=== PATIENT | female | born 1985 | race Caucasian/White ===

== ENCOUNTER 2016-08-19 02:53 | Inpatient (IN) | payer BC ==
[2016-08-19] MEDS ORDERED: Penicillin G Potassium IV* 5 MILLION.UNITS VIAL ONE (03:24)
[2016-08-19 03:36] LABS: Hematocrit 32 % (35-47); Hemoglobin 10.5 g/dl (12.0-16.0); Mean Corpuscular HGB Conc 33 g/dl (31-36); Mean Corpuscular Hemoglobin 27 pg (27-31); Mean Corpuscular Volume 81 fL (80-97); Mean Platelet Volume 9 um3 (7.4-10.4); Red Blood Count 3.93 10^6/ul (4.0-5.4); Red Cell Distribution Width 15 % (10.5-15); White Blood Count 11.3 10^3/ul (3.5-10.8)
[2016-08-19] MEDS ORDERED: OBEPIDURAL* 250 ML ONE (03:44)
[2016-08-19] MEDS ORDERED: Famotidine TAB* 20 MG PO PRN (04:13)
[2016-08-19] MEDS ORDERED: Sodium Citrate/Citric Acid* 15 ML UDC PO PRN (04:13)
[2016-08-19] MEDS ORDERED: Phenylephrine IV* 40 MCG/ML 10 ML SYRINGE IV PUSH PRN (04:13)
[2016-08-19] MEDS ORDERED: EPHEDrine (Pressors)* 50 MG/ML VIAL IV PUSH PRN (04:13)
[2016-08-19] MEDS ORDERED: OBEPIDURAL* 250 ML EPIDURAL SCH (05:00)
[2016-08-19] MEDS ORDERED: Oxytocin in LR* 20 UNITS/1,000 ML BAG IVPB SCH ×2 (08:00→15:00)
[2016-08-19] MEDS ORDERED: Oxytocin in LR* 20 UNITS/1,000 ML BAG IVPB ONE (08:07)
[2016-08-19] MEDS ORDERED: Acetaminophen TAB* 325 MG PO PRN (14:17)
[2016-08-19] MEDS ORDERED: Glycerin ADULT SUPP PR PRN (14:17)
[2016-08-19] MEDS ORDERED: Dibucaine 1% 28.35 GM TUBE PR PRN (14:17)
[2016-08-19] MEDS ORDERED: Witch Hazel PAD* JAR TOPICAL PRN (14:17)
[2016-08-19] MEDS ORDERED: oxyCODONE/Acetamin 5/325 MG* TAB PO PRN (14:24)
[2016-08-19] MEDS: Ibuprofen TAB* 600 MG PO PRN (19:18)
[2016-08-19] MEDS: Docusate CAP* 100 MG PO SCH (23:23)
[2016-08-20] MEDS: Ibuprofen TAB* 600 MG PO PRN ×4 (02:16→20:31)
[2016-08-20 08:23] LABS: Hematocrit 29 % (35-47); Hemoglobin 9.7 g/dl (12.0-16.0); Mean Corpuscular HGB Conc 33 g/dl (31-36); Mean Corpuscular Hemoglobin 27 pg (27-31); Mean Corpuscular Volume 82 fL (80-97); Mean Platelet Volume 9 um3 (7.4-10.4); Red Blood Count 3.56 10^6/ul (4.0-5.4); Red Cell Distribution Width 15 % (10.5-15)
[2016-08-20] MEDS: Simethicone CHEW TAB* 80 MG PO SCH ×3 (09:00→20:47)
[2016-08-20] MEDS: Docusate CAP* 100 MG PO SCH ×3 (09:08→20:31)
[2016-08-20] MEDS: Ferrous Gluconate TAB* 324 MG TAB PO SCH ×2 (09:09→20:31)
[2016-08-21 08:08] VITALS: BP 106/75
[2016-08-21] MEDS: Ferrous Gluconate TAB* 324 MG TAB PO SCH (09:00)
[2016-08-21] MEDS: Simethicone CHEW TAB* 80 MG PO SCH (09:00)
[2016-08-21] MEDS: Docusate CAP* 100 MG PO SCH (09:02)
[2016-08-21] MEDS: Ibuprofen TAB* 600 MG PO PRN (09:03)
== END 2016-08-21 12:14 | disposition home or self-care (01) | DRG 560 ==
LOC: MCHOBOUT 02:53 → MCHOB 03:26
PROVIDERS: ADMIT Obstetrics & Gynecology; ATTEND Obstetrics & Gynecology
PROC: 4A1HX4Z Monitoring of Products of Conception, Cardiac Electrical Activity, External Approach (ICD-10-PCS; principal; 2016-08-19)
PROC: 0HQ9XZZ Repair Perineum Skin, External Approach (ICD-10-PCS; 2016-08-19)
PROC: 10E0XZZ Delivery of Products of Conception, External Approach (ICD-10-PCS; 2016-08-19)
PROC: 10907ZC Drainage of Amniotic Fluid, Therapeutic from Products of Conception, Via Natural or Artificial Opening (ICD-10-PCS; 2016-08-19)
DX: O99.824 Streptococcus B carrier state complicating childbirth (principal); O77.0 Labor and delivery complicated by meconium in amniotic fluid; Z3A.39 39 weeks gestation of pregnancy; Z37.0 Single live birth; O70.0 First degree perineal laceration during delivery; O90.81 Anemia of the puerperium
CPT/HCPCS: 36415; 85025; 86850; 86900; 86901; A9270-GY; J2540

== ENCOUNTER 2017-10-06 17:13 | Emergency (ER) | payer BC ==
[2017-10-06 17:48] VITALS: BP 112/75
--- NOTE | 2017-10-06 18:31 | RAD ---
INDICATION: Pain between the thumb and the index finger mid metacarpal region following crush injury. COMPARISON: No relevant prior exams available on the [facility] for comparison. TECHNIQUE: AP, lateral, and oblique views RIGHT hand. REPORT AND IMPRESSION: Mild soft tissue swelling at the metacarpal phalangeal joint region most prominent at the second and third digits. Negative for fracture or malalignment.
[2017-10-06] MEDS ORDERED: Ibuprofen TAB* 600 MG PO ONE (18:35)
--- NOTE | 2017-10-06 18:40 | ED ---
Upper Extremity Pain - HPI Summary HPI Summary: [id number] patient here with crush injury prior to arrival. She reports she was pulling a window down in her house when it slammed down and crushed her hand. She has a blood blister and 2 swollen knuckles of the second and third phalanges. She has a little bit of tingling involving these 2 fingers as well however she is able to move all digits without pain or restriction. Sore to touch over areas of swelling here - mild bruising. She has not tried anything prior to arrival but has been pacing in the room prior to my entrance. - History of Current Complaint Chief Complaint: UCUpperExtremity Stated Complaint: HAND INJURY Time Seen by Provider: 10/06/17 18:08 Hx Obtained From: Patient Hx Last Menstrual Period: 1 MONTH AGO - Allergies/Home Medications Allergies/Adverse Reactions: Allergies Allergy/AdvReac Type Severity Reaction Status Date / Time No Known Allergies Allergy Verified 07/30/15 14:08 Home Medications: Home Medications Multivitamin [Multivitamins] 1 each PO DAILY 10/06/17 [History Confirmed ] PMH/Surg Hx/FS Hx/Imm Hx Previously Healthy: Yes Endocrine/Hematology History: Denies: Hx Anticoagulant Therapy, Hx Blood Disorders Infectious Disease History: No Infectious Disease History: Denies: Traveled Outside the [place] in Last 30 Days - Social History Occupation: Employed Full-time - teacher Lives: With Family Alcohol Use: None Hx Substance Use: No Substance Use Type: Reports: None Hx Tobacco Use: No Smoking Status (MU): Never Smoked Tobacco Review of Systems Positive: no symptoms reported Positive: Arthralgia, Myalgia, Edema. Negative: Decreased ROM Positive: Bruising Positive: Paresthesia Psychological: Normal All Other Systems Reviewed And Are Negative: Yes Physical Exam Triage Information Reviewed: Yes Vital Signs On Initial Exam: Initial Vitals Temp Pulse Resp BP Pulse Ox 98.1 F 70 16 112/75 100 10/06/17 17:45 10/06/17 17:45 10/06/17 17:45 10/06/17 17:45 10/06/17 17:45 Vital Signs Reviewed: Yes Appearance: Positive: Well-Appearing, Well-Nourished, Pain Distress - mild Skin: Positive: Warm, Skin Color Reflects Adequate Perfusion, Dry - mild ecchymosis w/ focal edema of soft tissue between 2nd/3rd MCP's - no skin breakdown Head/Face: Positive: Normal Head/Face Inspection Eyes: Positive: EOMI ENT: Positive: Hearing grossly normal Respiratory/Lung Sounds: Positive: Breath Sounds Present Cardiovascular: Positive: Pulses are Symmetrical in both Upper and Lower Extremities Musculoskeletal: Positive: Strength/ROM Intact - no gross deformity other than edema, Pain @ - mild TTP over 2nd MCP joint Neurological: Positive: Normal, Sensory/Motor Intact, Alert, Oriented to Person Place, Time, CN Intact II-III Psychiatric: Positive: Normal Diagnostics - Vital Signs Vital Signs Temp Pulse Resp BP Pulse Ox 10/06/17 17:45 98.1 F 70 16 112/75 100 - Laboratory Lab Results: Lab Results 10/06/17 Range/Units 18:00 POC Ur Test Negative (Negative) Lab Statement: Any lab studies that have been ordered have been reviewed, and results considered in the medical decision making process. Course/Dx - Course Course Of Treatment: XR: soft tissue swelling - no fx, no dislocation - Diagnoses Provider Diagnoses: Contusion of right hand Discharge - Sign-Out/Discharge Documenting (check all that apply): Discharge/Admit/Transfer - Discharge Plan Condition: Stable Disposition: HOME Patient Education Materials: Contusion in Adults (ED), Crush Injury (ED) Referrals: Jyoti Restrepo MD [Primary Care Provider] - Additional Instructions: Rest, ice, elevate Gently move your fingers and wrist to prevent stiffness, maintain strength and improved sensation He may take ibuprofen alternating with acetaminophen as needed for pain If symptoms persist beyond 2 weeks, follow-up with PCP - Billing Disposition and Condition Condition: STABLE Disposition: HOME
== END 2017-10-06 19:03 | disposition home or self-care (01) ==
LOC: UCEAST 17:13
DX: S60.221A Contusion of right hand, initial encounter (principal); W23.0XXA Caught, crushed, jammed, or pinched between moving objects, initial encounter; Y93.89 Activity, other specified; Y92.009 Unspecified place in unspecified non-institutional (private) residence as the place of occurrence of the external cause
CPT/HCPCS: 84702; 99212; A9270-GY; G0463

== ENCOUNTER 2019-07-22 11:52 | Inpatient (IN) | payer BC ==
[2019-07-22] MEDS ORDERED: Penicillin G Potassium IV* 5,000,000 UNITS in NS 0.9% 100 ML* 100 ML IVPB ONE (12:24)
[2019-07-22] MEDS ORDERED: Buffered Lidocaine 1% SYRIN* 1 ML/SYRINGE INTRADERM ONE (12:24)
[2019-07-22] MEDS ORDERED: Lactated Ringers 1000 ML Bag* 1,000 ML IV ONE ×2 (12:24→15:37)
[2019-07-22] MEDS ORDERED: Lactated Ringers 1000 ML Bag* 1,000 ML IV SCH ×2 (13:00→16:00)
[2019-07-22 13:24] LABS: ABS Eosinophils 0.1 10^3/ul (0-0.6); ABS Lymphocytes 1.9 10^3/ul (1.0-4.8); ABS Monocytes 0.5 10^3/ul (0-0.8); ABS Neutrophils 6.5 10^3/ul (1.5-7.7); Eosinophil % 0.7 %; Hematocrit 36 % (35-47); Hemoglobin 12.8 g/dL (12.0-16.0); Mean Corpuscular HGB Conc 35 g/dL (31-36); Mean Corpuscular Hemoglobin 32 pg (27-31); Mean Corpuscular Volume 92 fL (80-97); Mean Platelet Volume 9.9 fL (7.4-10.4); Platelet Count 131 10^3/uL (150-450); Red Blood Count 3.96 10^6 /uL (3.70-4.87); Red Cell Distribution Width 15 % (10-15)
[2019-07-22 13:56] LABS: Urine Benzodiazepine Screen None Detected (None Detect); Urine Opiates Screen None Detected (None Detect)
[2019-07-22] MEDS ORDERED: OBEPIDURAL* 250 ML EPIDURAL ONE (14:35)
--- NOTE | 2019-07-22 14:45 | HP ---
General Information - Reason for Visit Contractions started at 6am and got stronger around 10am, coming every few minutes. No LOF/VB. Good FM. - General Information Maternal Age: 33 Grav: 3 Para: 2 SAB: 0 IEA: 0 Estimated Due Date: 07/26/19 Determined By: LMP Maternal Blood Type and Rh: O Positive - Results this Serology/RPR Result: Non-Reactive Rubella Result: Immune HBsAg Result: Negative HIV Result: Negative GBS Culture Result: Positive Past Medical History Delivery History: Hx Uncomplicated Vaginal Delivery Pertinent Past Medical History: See Records Pertinent Past Surgical History: None Pertinent Family History: Non-Contributory Review of Systems Constitutional: Uncomfortable - contractions CV Complaint: No Respiratory: Shortness of Breath: No Gastrointestinal: No Nausea/Vomiting Genitourinary: No Dysuria, No Bleeding, No Leaking Fluid Musculoskeletal: Contractions Neurological: No Headache, No Visual Changes Movement: Normal Exam Allergies/Adverse Reactions: Allergies No Known Allergies Allergy (Verified 07/22/19 12:13) Lab Values - Entire Visit: Laboratory Tests 07/22/19 07/22/19 07/22/19 12:45 12:45 12:45 WBC 9.0 RBC 3.96 Hgb 12.8 Hct 36 MCV 92 MCH 32 H MCHC 35 RDW 15 Plt Count 131 L MPV 9.9 Neut % (Auto) 72.1 Lymph % (Auto) 21.0 [place] % (Auto) 5.7 Eos % (Auto) 0.7 Baso % (Auto) 0.5 Absolute Neuts (auto) 6.5 Absolute Lymphs (auto) 1.9 Absolute Monos (auto) 0.5 Absolute Eos (auto) 0.1 Absolute Basos (auto) 0.0 Absolute Nucleated RBC 0.0 Nucleated RBC % 0.0 Urine Opiates Screen None detected Ur Barbiturates Screen None detected Ur Phencyclidine Scrn None detected Ur Amphetamines Screen None detected U Benzodiazepines Scrn None detected Urine Cocaine Screen None detected U Cannabinoids Screen None detected Blood Type O Positive Antibody Screen Negative - Measurements Height: 5 ft 4 in Weight: 184 lb Weight in lbs: 184.472587 Body Mass Index (BMI): 31.6 Pre- Weight: 152 lb Weight Gained This : 32 lbs and 0 ozs - Exam Breast: Breast Exam Deferred Extremities: No Edema Heart: Normal Rhythm/Heart Sounds HEENT: No Significant Findings - Abdominal Exam Abdomen Exam: Non-Tender - Ultrasound/Biophysical Profile Ultrasound Status: Not Done Targeted Exam Findings Cervical Exam: 4cm Effacement: 70% Station: -2 Presenting Part: Vertex Membrane Status: Intact EFM Findings - External Monitor Findings Baseline Heart Rate: 140 External Monitor Findings: Accelerations Present, No Pattern of Variable or Late Decelerations, Variability Moderate, Baseline Stable Contractions: Regular - q2-4 Assessment/Plan - Assessment @39.2wks GA in active labor. GBS+ - Obstetrical Risk Factors Obstetrical Risk Factors: GBS Positive - Plan Plan: Observe, Admit - Anticipate Vaginal Delivery
[2019-07-22] MEDS ORDERED: EPHEDrine (Pressors)* 50 MG/ML VIAL IV PUSH PRN ×2 (15:37)
[2019-07-22] MEDS ORDERED: Famotidine TAB* 20 MG PO PRN (15:37)
[2019-07-22] MEDS ORDERED: Lactated Ringers 1000 ML Bag* 500 ML IV PRN ×2 (15:37)
[2019-07-22] MEDS ORDERED: Sodium Citrate/Citric Acid* 15 ML UDC PO PRN (15:37)
[2019-07-22] MEDS ORDERED: Phenylephrine 40 MCG/ML SYRINGE IV PUSH PRN ×2 (15:37)
[2019-07-22] MEDS ORDERED: OBEPIDURAL* 250 ML EPIDURAL SCH (16:00)
[2019-07-22] MEDS ORDERED: Oxytocin in LR* 20 UNITS/1,000 ML BAG IVPB SCH (18:00)
[2019-07-22] MEDS: Penicillin G Potassium IV* 3,000,000 UNITS in NS 0.9% 100 ML* 100 ML IVPB SCH ×2 (18:11→21:54)
[2019-07-23] MEDS ORDERED: Glycerin ADULT SUPP PR PRN (01:45)
[2019-07-23] MEDS ORDERED: Witch Hazel PAD* JAR TOPICAL PRN (01:45)
[2019-07-23] MEDS ORDERED: Oxytocin in LR* 20 UNITS/1,000 ML BAG IVPB SCH (02:00)
[2019-07-23] MEDS ORDERED: Lactated Ringers 1000 ML Bag* 1,000 ML IV SCH (02:00)
--- NOTE | 2019-07-23 02:01 | PROCNOTE ---
[facility] OB: Delivery Note - Delivery A Date of : 07/23/19 Time of : 00:58 [place] Sex: Male Weight at : 8 lb 15 oz Score 1 Minute: 9 Score 5 Minutes: 9 Gestational Age in Weeks and Days at Delivery: 39 Weeks and 4 Days Delivery Method: Spontaneous Vaginal Labor: Spontaneous Did Patient attempt ?: N/A, No Previous Amniotic Fluid: Meconium Estimated Blood Loss: 200 Anesthesia/Analgesia: CEI for Labor Delivered By: Earlene Saleem - Nursery Level of Nursery: Regular/Bedside - Perineum Perineal Injury: 1st Degree - Events Delivery Events of Note: Pitocin During Labor - Additional Delivery Notes Additional Delivery Notes: Pt presented in early labor. She progressed slowly, received an epidural and then was started on pitocin for labor augmentation. She became fully dilated and pushed for 1hr 45min to deliver the 's head in SORAIDA position followed quickly by the shoulders and the rest of the body. The baby was placed on mom' s abdomen. After 1min the cord was clamped x2 and cut. The placenta delivered with gentle cord traction and fundal massage and appeared intact. There were periurethral abrasions that were hemostatic. There were also b/l shallow skin tears on either side of the perineum that were repaired with 4-0 vicryl. The fundus was firm and good hemostasis.
[2019-07-23] MEDS: Penicillin G Potassium IV* 3,000,000 UNITS in NS 0.9% 100 ML* 100 ML IVPB SCH (02:02)
[2019-07-23] MEDS: Acetaminophen TAB* 325 MG PO PRN ×2 (02:03→21:26)
[2019-07-23] MEDS: Dibucaine 1% 28.35 GM TUBE PR PRN ×2 (02:03→21:26)
[2019-07-23] MEDS: Ibuprofen TAB* 600 MG PO PRN ×4 (02:03→21:25)
[2019-07-23] MEDS ORDERED: Simethicone TAB* 80 MG TAB.CHEW PO SCH (08:30)
[2019-07-23] MEDS: Docusate CAP* 100 MG PO SCH ×3 (09:01→21:26)
[2019-07-24] MEDS: Ibuprofen TAB* 600 MG PO PRN ×2 (05:14→11:54)
[2019-07-24] MEDS: Acetaminophen TAB* 325 MG PO PRN (05:14)
[2019-07-24 05:41] LABS: ABS Basophils 0.1 10^3/ul (0-0.2); ABS Eosinophils 0.1 10^3/ul (0-0.6); ABS Lymphocytes 2.7 10^3/ul (1.0-4.8); ABS Monocytes 0.5 10^3/ul (0-0.8); ABS Neutrophils 5.6 10^3/ul (1.5-7.7); Eosinophil % 1.6 %; Hematocrit 34 % (35-47); Hemoglobin 11.6 g/dL (12.0-16.0); Lymphocyte % 29.9 %; Mean Corpuscular HGB Conc 35 g/dL (31-36); Mean Corpuscular Hemoglobin 32 pg (27-31); Mean Corpuscular Volume 93 fL (80-97); Mean Platelet Volume 9.5 fL (7.4-10.4); Nucleated Red Blood Cells % 0.1; Platelet Count 122 10^3/uL (150-450); Red Blood Count 3.65 10^6 /uL (3.70-4.87); Red Cell Distribution Width 15 % (10-15); White Blood Count 8.9 10^3/uL (3.5-10.8)
[2019-07-24] MEDS ORDERED: Ferrous Gluconate TAB* 324 MG TAB PO SCH (09:00)
[2019-07-24] MEDS: Dibucaine 1% 28.35 GM TUBE PR PRN (09:35)
[2019-07-24] MEDS: Docusate CAP* 100 MG PO SCH (09:35)
[2019-07-24 20:09] VITALS: BP 121/69
== END 2019-07-24 19:30 | disposition home or self-care (01) | DRG 560 ==
LOC: MCHOBOUT 11:52 → MCHOB 12:20
PROVIDERS: ADMIT Obstetrics & Gynecology; ATTEND Obstetrics & Gynecology
PROC: 10E0XZZ Delivery of Products of Conception, External Approach (ICD-10-PCS; principal; 2019-07-23)
PROC: 0HQ9XZZ Repair Perineum Skin, External Approach (ICD-10-PCS; 2019-07-23)
DX: O99.824 Streptococcus B carrier state complicating childbirth (principal); Z37.0 Single live birth; O70.0 First degree perineal laceration during delivery; O77.0 Labor and delivery complicated by meconium in amniotic fluid; Z3A.39 39 weeks gestation of pregnancy
CPT/HCPCS: 36415; 80307; 85025; 86850; 86900; 86901; A9270-GY; G0480; J2540

== ENCOUNTER 2022-12-23 22:14 | Observation (INO) ==
[2022-12-23] MEDS ORDERED: Magnesium Hydroxide LIQ 30 ML UDC PO ONE (22:42)
[2022-12-23] MEDS ORDERED: Metoclopramide 5 MG/ML VIAL (10 mg) IV ONE (22:43)
[2022-12-23] MEDS ORDERED: Acetaminophen IV 1 GM/100ML 1,000 MG/100 ML BAG IV PRN (22:46)
[2022-12-23] MEDS: NS 0.9% 1000 ml BAG 1,000 ML IV SCH (23:50)
[2022-12-24 08:11] LABS: ABS Eosinophils 0.2 10^3/uL (0.0-0.5); ABS Monocytes 0.4 10^3/uL (0.0-0.9); ABS Nucleated RBC 0.01 10^3/ul; Eosinophil % 3.4 %; Hematocrit 34.4 % (35-45); Hemoglobin 12.2 g/dL (11.5-14.3); Lymphocyte % 30.3 %; Mean Corpuscular Hemoglobin 31.4 pg (27-33); Mean Corpuscular Hgb Conc 35.4 g/dL (31-36); Mean Corpuscular Volume 88.5 fL (80-97); Mean Platelet Volume 8.2 fL (7.5-11.2); Nucleated Red Blood Cells % 0.1 /100 WBC (0.0-0.4); Platelet Count 162 10^3/uL (150-450); Red Blood Count 3.88 10^6/uL (3.63-4.92); Red Cell Distribution Width 12.7 % (12-17); White Blood Count 6.7 10^3/uL (3.8-11.8)
[2022-12-24 08:24] LABS: Creatinine, Serum 0.7 mg/dL (0.51-0.95); eGFR CKD-EPI 115.6 (>60)
[2022-12-24] MEDS: NS 0.9% 1000 ml BAG 1,000 ML IV SCH ×2 (09:51→20:20)
[2022-12-24 11:42] LABS: C Reactive Protein 16.76 mg/L (<8.01)
[2022-12-24] MEDS ORDERED: Diatrizoate Meg/Sod(CONTRAST) 30 ML ORAL.SOLN PO ONE (12:12)
[2022-12-25 05:52] LABS: ABS Eosinophils 0.3 10^3/uL (0.0-0.5); ABS Lymphocytes 2.1 10^3/uL (1.0-4.8); ABS Monocytes 0.5 10^3/uL (0.0-0.9); Eosinophil % 3.5 %; Hematocrit 34.3 % (35-45); Lymphocyte % 26.7 %; Mean Corpuscular Hgb Conc 34.9 g/dL (31-36); Mean Corpuscular Volume 88.8 fL (80-97); Mean Platelet Volume 8.7 fL (7.5-11.2); Platelet Count 169 10^3/uL (150-450); Red Blood Count 3.86 10^6/uL (3.63-4.92); Red Cell Distribution Width 12.4 % (12-17); White Blood Count 7.8 10^3/uL (3.8-11.8)
[2022-12-25 06:11] LABS: C Reactive Protein 9.91 mg/L (<8.01); Calcium 8.5 mg/dL (8.6-10.3); Creatinine, Serum 0.73 mg/dL (0.51-0.95); Magnesium 1.9 mg/dL (1.9-2.7); Potassium 3.6 mmol/L (3.5-5.0); eGFR CKD-EPI 109.9 (>60)
[2022-12-25] MEDS: NS 0.9% 1000 ml BAG 1,000 ML IV SCH (06:30)
[2022-12-25] MEDS ORDERED: Magnesium Hydroxide LIQ 30 ML UDC PO PRN (08:23)
[2022-12-25] MEDS ORDERED: Polyethylene Glycol 3350 17 GM PACKET PO PRN (08:23)
[2022-12-25] MEDS ORDERED: Senna TAB 8.6 mg TAB PO SCH (09:00)
[2022-12-25] MEDS ORDERED: Magnesium Hydroxide LIQ 30 ML UDC PO SCH (09:00)
[2022-12-25 09:48] VITALS: BP 128/81
== END 2022-12-25 13:45 | disposition home or self-care (01) ==
LOC: SSU → SUATTDRO 22:43
PROVIDERS: ADMIT Hospitalist; ATTEND Internal Medicine